=== PATIENT | female | born 1970 | race Hispanic/Latino ===

== ENCOUNTER 2020-03-29 13:21 | Outpatient (CLI) | payer OTHER ==
--- NOTE | 2020-03-29 14:11 | MMO ---
Bilateral MAMMO Bilat Diag [facility]. CLINICAL HISTORY: Patient is 49 years old and is seen for diagnostic exam and lump or thickening in the right breast. The patient has no family history of breast cancer. The patient has no personal history of cancer. VIEWS: The views performed were: bilateral craniocaudal with tomosynthesis; bilateral mediolateral oblique with tomosynthesis; and bilateral mediolateral with tomosynthesis. FILMS COMPARED: The present examination has been compared to prior imaging studies performed at [facility] on 05/17/2012, 05/19/2019 and 03/29/2020. This study has been interpreted with the assistance of computer-aided detection. MAMMOGRAM FINDINGS: The breasts are heterogeneously dense, which could obscure a lesion on mammography. Finding 1: There is a round mass measuring 28 millimeters with circumscribed margins seen in the anterior region of the right breast at 12 o'clock. Finding 2: There are stable benign appearing calcifications seen in both breasts. There are no suspicious masses, suspicious calcifications, or new areas of architectural distortion. IMPRESSION: FINDING 1: MASS IN THE RIGHT BREAST IS BENIGN. CYST ON ULTRASOUND FINDING 2: STABLE CALCIFICATIONS IN BOTH BREASTS ARE BENIGN. A ROUTINE FOLLOW-UP MAMMOGRAM IN 1 YEAR IS RECOMMENDED. THE RESULTS OF THIS EXAM WERE SENT TO THE PATIENT. ACR BI-RADS Category 2 - Benign finding MAMMOGRAPHY NOTE: 1. A negative mammogram report should not delay a biopsy if a dominant of clinically suspicious mass is present. 2. Approximately 10% to 15% of breast cancers are not detected by mammography. 3. Adenosis and dense breasts may obscure an underlying neoplasm. Reported by: MONSE AKHTAR MD Electonically Signed: [id number]
--- NOTE | 2020-03-29 14:16 | ULT ---
EXAM: RIGHT BREAST ULTRASOUND: 03/29/20 HISTORY: Patient presents with a palpable finding at 12 o'clock 2 cm from the nipple in the right breast. In the region of palpable finding, there is a large cyst measuring approximately 2.1 x 2.3 x 2.4 cm i n size. IMPRESSION: BIRADS 2: Benign Finding(s) Routine annual screening mammography (for women over age 40). Continued annual follow-up mammograms . Right breast cyst at 12 o'clock 2 cm from the nipple corresponding to the palpable and abnormal jumana mographic finding. POS: [facility]
== END 2020-03-29 13:22 | disposition home or self-care (01) ==
LOC: BICMAMMO 13:21
PROVIDERS: ATTEND Nurse Practitioner Women's Health
DX: N63.11 Unspecified lump in the right breast, upper outer quadrant (principal)
CPT/HCPCS: 77066; G0279

== ENCOUNTER 2023-01-08 10:32 | Outpatient (CLI) | payer OTHER | END 2023-01-08 10:33 | disposition home or self-care (01) | LOC: BICRAD 10:32 | PROVIDERS: ATTEND Family Medicine | DX: R76.12 Nonspecific reaction to cell mediated immunity measurement of gamma interferon antigen response without active tuberculosis (principal) | CPT/HCPCS: 71046 ==